=== PATIENT | male | born 1980 | race Caucasian/White ===

== ENCOUNTER 2018-01-12 04:49 | Emergency (ER) | payer SELFPAY ==
[~2018-01-12] VITALS: Ht 182.9 cm; Wt 82.0 kg
[2018-01-12 05:05] VITALS: BP 172/90; PULSE 121; RESP 18; TEMP 100; O2SAT 99
[2018-01-12] MEDS ORDERED: SULFAMETHOXAZOLE-TRIMETHOPRIM DS 800-160 MG TAB PO ONE (06:00)
[2018-01-12] MEDS ORDERED: CLINDAMYCIN 150 MG CAP PO ONE (06:00)
--- NOTE | 2018-01-12 06:00 | PD ---
HPI . Cellulitic-like rash to right ankle Chief Complaint: Skin Problem Time Seen by Provider: 05:22 Travel History International Travel<30 days: No Contact w/Intl Traveler<30days: No Traveled to known affect area: No History of Present Illness HPI Patient woke up yesterday morning with redness to his right the nurse distal tib -fib area that has papules . Now spreading like cellulitis of his instep of the right burning pain ful radiating up his leg , he has not seen another MD for this and is on no meds for this. pt does not have DM pt is not immunocompromised [facility] Past Medical History Immunizations Current: Yes Tetanus Vaccination: Unknown Influenza Vaccination: No Social History Alcohol Use: No Tobacco Use: No Substance Use: No Allergies-Medications (Allergen,Severity, Reaction): Coded Allergies: oxycodone (Verified Allergy, Severe, Anaphylaxis, 01/12/18) Reported Meds & Prescriptions Reported Meds & Active Scripts Active Bactrim DS (Sulfamethoxazole-Trimethoprim) 800-160 Mg Tab 1 Tab PO BID Clindamycin (Clindamycin HCl) 300 Mg Cap 300 Mg PO TID Review of Systems Except as stated in HPI: all other systems reviewed are Neg Physical Exam Narrative GENERAL: Has red papules on the medial aspect of his distal right tib-fib with surrounding cellulitis the papules are about 5 cm 4 cm in the cellulitis is about 7 cm surrounding SKIN: Warm and dry. Cellulitis-like picture to the distal right tib-fib HEAD: Atraumatic. Normocephalic. EYES: Pupils equal and round. No scleral icterus. No injection or drainage. ENT: No nasal bleeding or discharge. Mucous membranes pink and moist. NECK: Trachea midline. No JVD. CARDIOVASCULAR: Regular rate and rhythm. RESPIRATORY: No accessory muscle use. Clear to auscultation. Breath sounds equal bilaterally. GASTROINTESTINAL: Abdomen soft, non-tender, nondistended. Hepatic and splenic margins not palpable. MUSCULOSKELETAL: Extremities without clubbing, cyanosis, or edema. No obvious deformities. NEUROLOGICAL: Awake and alert. No obvious cranial nerve deficits. Motor grossly within normal limits. Five out of 5 muscle strength in the arms and legs. Normal speech. PSYCHIATRIC: Appropriate mood and affect; insight and judgment normal. Data Data Last Documented VS Orders Orders Clindamycin (Cleocin) (01/12/18 06:00) Sulfamet-Trimeth Ds 800-160 Mg (Bactrim (01/12/18 06:00) Ed Discharge Order (01/12/18 06:08) MDM Medical Decision Making Medical Screen Exam Complete: Yes Emergency Medical Condition: Yes Differential Diagnosis insect bite leading to cellulitis and trauma to cellulitis vs vasculitis vs sunburn to cellulitis Narrative Course Patient is given Clinda and Bactrim p.o. in the ER and discharged with a 10 day supply twice daily Bactrim 3 times daily Clinda and to follow-up in 4 days to check to assure that it is not worsening in spite of p.o. antibiotics Diagnosis Primary Impression: Cellulitis Qualified Codes: L03.115 - Cellulitis of right lower limb Patient Instructions: Cellulitis (ED), General Instructions Scripts Sulfamethoxazole-Trimethoprim (Bactrim DS) 800-160 Mg Tab 1 TAB PO BID for Infection, #20 TAB 0 Refills Prov: Roc Sky MD 01/12/18 Clindamycin (Clindamycin) 300 Mg Cap 300 MG PO TID for Infection, #30 CAP 0 Refills Prov: Roc Sky MD 01/12/18 Disposition: 01 DISCHARGE HOME Condition: Good Roc Sky MD Jan 12, 2018 06:00
[2018-01-12] MEDS ORDERED: BACT800T5 PO (06:01)
[2018-01-12] MEDS ORDERED: CLIN300C5 PO (06:01)
== END 2018-01-12 06:30 | disposition home or self-care (01) ==
LOC: NEPE 04:49
DX: L03.115 Cellulitis of right lower limb (principal); Z88.5 Allergy status to narcotic agent
CPT/HCPCS: 99283